=== PATIENT | male | born 1955 | race Caucasian/White ===

== ENCOUNTER 2023-04-17 09:01 | Outpatient (OUT) | payer MEDICARE, BC, SELFPAY ==
[2023-04-17 09:47] LABS: Uric Acid 4.7 mg/dL (3.5-7.2)
== END 2023-04-17 09:02 | disposition home or self-care (01) ==
PROVIDERS: Family Provider Urology; PCP Internal Medicine; Visit Provider Nurse Practitioner Family
DX: M10.032 Idiopathic gout, left wrist (principal)
CPT/HCPCS: 36415; 84550

== ENCOUNTER 2023-04-19 12:38 | Outpatient (OUT) | payer MEDICARE, BC, SELFPAY ==
--- NOTE | 2023-04-19 12:38 | ECG_ITS ---
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
--- NOTE | 2023-04-19 12:38 | XR_ITS ---
The [address] [address] Patient Name: DEISI JUÁREZ MRN: [id number] date: 1955 Sex: M Assigned Patient Location: [facility] Current Patient Location: [facility] Accession/Order Number: [id number] Exam Date: 04/19/2023 13:32 Report Date: 04/19/2023 13:55 At the request of: ROB OLSEN Procedure: XR chest 2V EXAMINATION: XR chest 2V HISTORY: Preop exam COMPARISON: No relevant comparison available. FINDINGS: LUNGS: No significant pulmonary parenchymal abnormalities. Calcified granuloma lateral left midlung. VASCULATURE: No increased pulmonary vasculature. PLEURA: No pneumothorax, effusion, or pleural thickening. CARDIAC: No cardiomegaly or cardiac silhouette abnormality. MEDIASTINUM: No visible mass or adenopathy. BONES: No fracture or visible bone lesion. OTHER: Negative. XR/XR chest 2V IMPRESSION: 1. No acute cardiopulmonary process. Electronically authenticated by: TARYN LUNA Date: 04/19/2023 13:55
--- NOTE | 2023-04-19 13:42 | P.GSHP_ITS ---
History of Present Illness History of Present Illness Chief complaint: prostrate cancer Narrative: Patient presents for preadmission testing accompanied by his . The patient states he has completed radiation for prostate cancer and is now scheduled for a radium seed implant. He states he is not experiencing any urinary complaints at this time. He denies hematuria, dysuria, abdominal pain, nausea, vomiting, or any other complaints. Review of Systems ROS Narrative REVIEW OF SYSTEMS: Negative except as stated in HPI, ten or more systems reviewed. Constitutional: No fever , chills, weakness ENT: No sore throat or epistaxis Cardiovascular: No edema, chest pain, palpitations, or activity intolerance Respiratory: No shortness of breath, cough, or wheezing Musculoskeletal: No joint pain or swelling Gastrointestinal: No abdominal pain, constipation, diarrhea, or vomiting Genitourinary: No dysuria or hematuria Neurological: No numbness, tingling, weakness, or headache Psychiatric: No mood changes PFSH PFS Medical History (Updated 04/19/23 @ 13:14 by Estephania Steele NP) Surgical History (Updated 04/19/23 @ 13:02 by Estephania Steele NP) Family History (Updated 04/19/23 @ 13:14 by Estephanai Steele NP) Other Family history of diabetes mellitus Family history of heart disease Family history of prostate cancer Social History (Updated 04/19/23 @ 12:58 by Estephania Steele NP) Within the past year, how often did you have a drink containing alcohol: 2-4 times a month Smoking status: Never smoker Highest level of school completed/degree received: high school graduate Meds Home Medications and Allergies Home Medications Medication Instructions Recorded Confirmed Type acetaminophen 650 mg 650 mg PO Q12H PRN pain 04/19/23 04/19/23 History tablet,extended release (Arthritis Pain Reliever) bicalutamide 50 mg tablet 50 mg PO QDAY 04/19/23 04/19/23 History calcium carbonate 600 mg-vitamin 1 tab PO DAILY 04/19/23 04/19/23 History D3 5 mcg (200 unit) tablet (Calcium 600 + D(3)) cyanocobalamin (B12)-cobamamide maggi sublingual 04/19/23 History 5,000 mcg-100 mcg sublingual lozenge (B12) indomethacin 50 mg capsule 50 mg PO TID PRN gout 04/19/23 04/19/23 History losartan 50 mg tablet 50 mg PO QDAY 04/19/23 04/19/23 History pyridoxine (vitamin B6) 100 mg 50 mg PO TID 04/19/23 04/19/23 History tablet tamsulosin 0.4 mg capsule 0.4 mg PO Q24H 04/19/23 04/19/23 History Allergies Allergy/AdvReac Type Severity Reaction Status Date / Time No Known Drug Allergies Allergy Verified 04/19/23 12:54 Exam Narrative Exam Narrative: Constitutional: Awake, alert, comfortable, well-appearing, nontoxic, interactive, vital signs as charted Head: Normocephalic, atraumatic Neck: Supple, normal appearance, normal range of motion, no meningeal signs, no lymphadenopathy Respiratory: No respiratory distress, breath sounds clear Cardiovascular: Regular rate and rhythm, strong and regular heart tones Abdomen: Nontender, normal bowel sounds, soft, no CVA tenderness Musculoskeletal: Normal gait, no swelling or edema Skin: No rashes or induration, no lesions, only visible skin inspected Neuro: No neurological deficits, normal sensation Psychiatric: Oriented ?3, normal affect Assessment and Plan Assessment and Plan (1) Elevated PSA: (2) Prostate cancer: Plan Rosa Sanchez seed implant scheduled with Dr. Humphries 04/26/2023.
[2023-04-19 13:50] LABS: Basophils Percent Auto 0.5 % (0.2-2.0); Eosinophils Absolute Auto 0.1 10^3/uL (0.0-0.7); Eosinophils Percent Auto 1.5 % (0.9-7.0); Hemoglobin 10.7 g/dL (14.0-18.0); Immature Granulocytes Abs Auto 0.04 10^3/uL (0.00-0.03); Lymphocytes Absolute Auto 0.4 10^3/uL (1.2-3.8); Lymphocytes Percent Auto 8.7 % (20.5-60.0); Mean Corpuscular HGB Conc 35.7 g/dL (29.9-35.2); Mean Corpuscular Hemoglobin 30.6 pg (25.9-34.0); Mean Corpuscular Volume 85.7 fL (80.0-94.0); Monocytes Absolute Auto 0.3 10^3/uL (0.3-0.8); Monocytes Percent Auto 6.2 % (1.7-12.0); Neutrophils Absolute Auto 3.3 10^3/uL (1.4-6.5); Neutrophils Percent Auto 82.1 % (43.0-75.0); Platelet Count 204 10^3/uL (150-450)
[2023-04-19 13:59] LABS: Anion Gap 14.8; BUN Creatinine Ratio 17.2; Calcium 8.5 mg/dL (8.5-10.1); Carbon Dioxide 24.2 mmol/L (21.0-32.0); Chloride 107 mmol/L (98-107); Estimated GFR (African America 56 (>=60); Estimated GFR (Non-African Ame 46 (>=60); Glucose 144 mg/dL (74-106); Sodium 142 mmol/L (136-145)
[2023-04-19 14:08] LABS: INR 0.99; Partial Thromboplastin Time 28.5 sec (22.3-36.2); Prothrombin Time 10.5 sec (9.0-11.6)
== END 2023-04-19 12:39 | disposition home or self-care (01) ==
LOC: PST 12:38
PROVIDERS: Family Provider Urology; PCP Internal Medicine; Visit Provider Urology
DX: Z01.810 Encounter for preprocedural cardiovascular examination (principal); Z01.812 Encounter for preprocedural laboratory examination; C61 Malignant neoplasm of prostate; R97.20 Elevated prostate specific antigen [PSA]; M10.9 Gout, unspecified
CPT/HCPCS: 36415; 71046; 80048; 85025; 85610; 85730; 93005; G0463

== ENCOUNTER 2023-04-26 06:55 | Day surgery (SDC) | payer MEDICARE, BC, SELFPAY ==
[2023-04-19 13:15] VITALS: BP 162/78; PULSE 75; RESP 20; TEMP 36.2; O2SAT 100; BMI 37.9
[2023-04-26] VITALS (9 sets, daily range): BP systolic 112–169; BP diastolic 66–84; PULSE 61–79; RESP 10–16; TEMP 35.9–36.2; O2SAT 97–100
--- NOTE | 2023-04-26 | XR_ITS ---
The [address] [address] Patient Name: DEISI JUÁREZ MRN: [id number] date: 1955 Sex: M Assigned Patient Location: [facility] Current Patient Location: [facility] Accession/Order Number: [id number] Exam Date: 04/26/2023 08:00 Report Date: 04/26/2023 09:29 At the request of: ROB OLSEN Procedure: XR pelvis 1-2V PROCEDURE: XR pelvis 1-2V HISTORY: Prostate seed implant COMPARISON: None. FINDINGS: Multiple radioactive seeds confined to region of prostate. Bladder is filled with contrast without evidence of extravasation. XR/XR pelvis 1-2V IMPRESSION: 1. Radioactive seeding of the prostate. No appreciable bladder involvement. Electronically authenticated by: TARYN LUNA Date: 04/26/2023 09:29
[2023-04-26] MEDS: LACTATED RINGER'S SOLUTION 1,000 ML 50 ML IV (07:27)
[2023-04-26] MEDS: CEFAZOLIN SODIUM/DEXTROSE,ISO 1 GM/50 ML IV.SOLN IV (07:45)
[2023-04-26] MEDS: IOHEXOL 240 MG/ML - 50 ML VIAL INJ (08:34)
--- NOTE | 2023-04-26 08:58 | P.URON_ITS ---
Urology Surgery Operative Note Operative Note Procedure Date: 04/26/23 Time Out Performed: yes Pre-op Diagnosis: prostate cancer Post-op Diagnosis: same as pre-op Procedures performed: #1. Palladium 103 prostate seed implantation. #2. Cystoscopy. Anesthesia: General-LMA Primary Surgeon: Juwan Humphries Complications: none Estimated blood loss (mL): 10 Findings: good coverage on live dosimetry Specimens: non- Drains: 18 Vietnamese Blancas catheter in the bladder Indications for Procedures: this gentleman has a PSA of 46 and prostate adenocarcinoma Dorothy score of 4+3 = 7 in 4 cores and 3+4 = 7 in one core. His metastatic workup was negative. PSMA PET CT was also negative for metastatic disease. He has been managed with total androgen blockade and external beam radiation therapy of 45 fyae. He now presents for palladium 103 prostate seed implantation and cystoscopy. He has signed an informed consent for these procedures after all the risks were explained. Detailed description of Procedure: The patient was brought to the operating room and placed on the operating room table in the supine position. SCDs were placed on the lower extremities and turned on and functioning during the entire case. Timeout was done by all parties in the room. We all agreed upon the patient's identification and the planned procedures for this patient. Genn. anesthesia was then administered. The patient was then repositioned into the modified dorsal lithotomy position. All pressure points were satisfactorily padded. Genitalia and perineum were sterilely prepped and draped in usual fashion.his position was verified to match his preoperative simulation. We filled his bladder with dilute saline and contrast. The catheter was removed. We then brought the implant bracket to the foot of the table and placed the ultrasound probe per rectum. The grid was placed over the perineum. We then used fluoroscopic and ultrasonic assistance to pass needles transperineally into the prostate. The seeds were then placed in the predetermined locations according to the treatment plan. We ended up applying a total of 21 needles and dropping 79 seeds into the prostate according to the treatment plan. This conferred a dose of 100 llanes to the prostate. Our last radiograph revealed a accurate seed count. live dosimetry done on the table showed that we had excellent coverage throughout the entire prostate. At this time we then removed the implant bracket, ultrasound probe and grid from the end of the table. I Then passed a 22 Vietnamese Olympus cystoscope per urethra and into the bladder. The anterior urethra was normal. The prostatic urethra showed trilobar obstruction. The left side encroached upon the right side. There was no evidence of any seeds or spacers protruding from the prostate. Careful panendoscopy in the bladder showed high-grade damage in the form of thick trabeculation and open diverticuli. No tumors were noted. There were no seeds or spacers within the bladder. The scope was then removed. I then placed an 18 Vietnamese Blancas catheter in the bladder. 10 mL of fluid was placed in the balloon. It drained clear. He was then transferred to a [facility] bed and wheeled to PACU in stable condition. He'll be discharged to home later today with a Blancas catheter indwelling and a prescription for Vesicare 10 mg daily and doxycycline 100 mg twice a day for 10 days. Follow-up will be in one week for catheter removal.
[2023-04-26] MEDS: SOLIFENACIN SUCCINATE 10 MG TABLET PO (09:52)
--- NOTE | 2023-04-26 10:29 | PC.NURSE ---
Blancas emptied for clear yellow urine
== END 2023-04-26 10:15 | disposition home or self-care (01) ==
PROVIDERS: Family Provider Urology; PCP Internal Medicine; Visit Provider Urology
PROC: (CPT 55875; principal; 2023-04-26 08:00)
DX: C61 Malignant neoplasm of prostate (principal); R97.20 Elevated prostate specific antigen [PSA]; M10.9 Gout, unspecified; N40.1 Benign prostatic hyperplasia with lower urinary tract symptoms; Z80.42 Family history of malignant neoplasm of prostate; E66.01 Morbid (severe) obesity due to excess calories; Z68.41 Body mass index [BMI] 40.0-44.9, adult; G47.33 Obstructive sleep apnea (adult) (pediatric); R35.1 Nocturia; Z79.899 Other long term (current) drug therapy; N13.8 Other obstructive and reflux uropathy; N32.89 Other specified disorders of bladder
CPT/HCPCS: 55875; 36415; 72170; 76965; 77290; 77332; 77778; C1715; C2635; C2640; J2704; Q9966